=== PATIENT | female | born 1995 | race Caucasian/White ===

== ENCOUNTER 2016-08-05 18:25 | Observation (INO) | payer OTHER ==
[~2016-08-05] VITALS: Ht 154.9 cm; Wt 52.1 kg
[2016-08-05 19:11] LABS: HEMATOCRIT 42.2 % (36.0-46.0); MCH 29.4 PG (29.0-34.0); MCHC 34.8 G/DL (30.0-36.0); MCV 84.4 FL (83-99); MEAN PLAT.VOLUME 9.6 uM^3 (9.5-12.4); PLATELET COUNT 330 K/uL (156-360); RBC DIS.WIDTH-CV 12.9 % (11.8-14.6); RBC DIS.WIDTH-SD 39.1 % (39-53); WHITE BLOOD COUNT 6.7 K/uL (4.1-10.2)
[2016-08-05 19:21] LABS: CHLORIDE 109 mEq/L (99-109); POTASSIUM 4.5 mEq/L (3.7-5.4); SODIUM 142 mEq/L (136-147)
[2016-08-05 19:23] LABS: GLUCOSE 93 mg/dL (70-99)
[2016-08-05 19:24] LABS: ANION GAP 12 MEQ/L (2-14)
[2016-08-05 19:27] LABS: GFR ESTIMATE (CALCULATED) > 59 mL/min/
[2016-08-05 19:28] LABS: UREA NITROGEN (BUN) 11 mg/dL (9-23)
[2016-08-05 19:35] LABS: TROP-I INTERPRETATION NEGATIVE; TROPONIN-I < 0.01 ng/mL (0.0-0.30)
[2016-08-05 20:33] LABS: D-DIMER ELISA < 0.15 mg/L FEU (< 0.57)
[2016-08-05] MEDS ORDERED: BUSPAR5 MG PO (21:48)
[2016-08-05 23:40] VITALS: BP 123/74
[2016-08-06 01:27] LABS: TROP-I INTERPRETATION NEGATIVE; TROPONIN-I < 0.01 ng/mL (0.0-0.30)
[2016-08-06 03:57] VITALS: BP 107/59
[2016-08-06 08:12] VITALS: BP 115/58
[2016-08-06 08:32] LABS: HEMATOCRIT 38.4 % (36.0-46.0); MCH 29.1 PG (29.0-34.0); MCHC 33.9 G/DL (30.0-36.0); MCV 85.9 FL (83-99); MEAN PLAT.VOLUME 9.8 uM^3 (9.5-12.4); PLATELET COUNT 264 K/uL (156-360); RBC DIS.WIDTH-SD 40.6 % (39-53); RED BLOOD COUNT 4.47 M/uL (3.80-5.20); WHITE BLOOD COUNT 5.8 K/uL (4.1-10.2)
[2016-08-06 08:55] LABS: ANION GAP 7 MEQ/L (2-14); CHLORIDE 108 MEQ/L (99-109); GFR ESTIMATE (CALCULATED) > 59 mL/min/; GLUCOSE 84 mg/dL (70-99); POTASSIUM 4.4 MEQ/L (3.7-5.4); SAMPLE HEMOLYSIS CHECK 0; SAMPLE ICTERIC CHECK 0; SAMPLE LIPEMIA CHECK 0; SODIUM 140 MEQ/L (136-147); UREA NITROGEN (BUN) 14 mg/dL (9-23)
[2016-08-06 08:57] LABS: TROP-I INTERPRETATION NEGATIVE; TROPONIN-I < 0.01 ng/mL (0.0-0.30)
[2016-08-07] MEDS ORDERED: ATIVAN0.5 MG PO (23:10)
== END 2016-08-06 13:57 | disposition home or self-care (01) ==
LOC: EME 18:25 → EDOF 22:01 → 5WEST 22:01
PROVIDERS: Emergency Medicine; Hospitalist
DX: R07.89 Other chest pain (principal); R00.2 Palpitations; R94.31 Abnormal electrocardiogram [ECG] [EKG]; R59.1 Generalized enlarged lymph nodes; R05 Cough; F17.200 Nicotine dependence, unspecified, uncomplicated; Z82.49 Family history of ischemic heart disease and other diseases of the circulatory system
CPT/HCPCS: 71020; 71275; 80048; 84443; 84484; 85027; 85379; 93005; 93306; 99281; 99284; G0378; J7030

== ENCOUNTER 2016-08-07 20:46 | Emergency (ER) | payer OTHER ==
[~2016-08-07] VITALS: Ht 154.9 cm; Wt 52.5 kg
[~2016-08-07 20:46] MED LIST: BUSPAR5 MG PO
[2016-08-07 21:37] LABS: HEMATOCRIT 39.7 % (36.0-46.0); MCH 30.4 PG (29.0-34.0); MCHC 36.3 G/DL (30.0-36.0); MCV 83.9 FL (83-99); MEAN PLAT.VOLUME 9.6 uM^3 (9.5-12.4); PLATELET COUNT 330 K/uL (156-360); RBC DIS.WIDTH-CV 12.6 % (11.8-14.6); RBC DIS.WIDTH-SD 38.1 % (39-53); RED BLOOD COUNT 4.73 M/uL (3.80-5.20); WHITE BLOOD COUNT 7.4 K/uL (4.1-10.2)
[2016-08-07 21:50] LABS: CHLORIDE 108 mEq/L (99-109); POTASSIUM 4.2 mEq/L (3.7-5.4); SODIUM 139 mEq/L (136-147)
[2016-08-07 21:51] LABS: GLUCOSE 87 mg/dL (70-99)
[2016-08-07 21:53] LABS: ANION GAP 9 MEQ/L (2-14)
[2016-08-07 21:55] LABS: GFR ESTIMATE (CALCULATED) > 59 mL/min/
[2016-08-07 21:56] LABS: UREA NITROGEN (BUN) 15 mg/dL (9-23)
[2016-08-07 21:57] LABS: TROP-I INTERPRETATION NEGATIVE; TROPONIN-I < 0.01 ng/mL (0.0-0.30)
[2016-08-07 22:19] VITALS: BP 123/81
[2016-08-07 22:52] LABS: QUANTITATIVE HCG < 4.0 MIU/ML
[2016-08-07] MEDS ORDERED: ATIVAN0.5 MG PO (23:10)
== END 2016-08-07 23:53 | disposition home or self-care (01) ==
LOC: EME 20:46
DX: R00.2 Palpitations (principal); R07.89 Other chest pain; F43.9 Reaction to severe stress, unspecified; F41.9 Anxiety disorder, unspecified; F17.200 Nicotine dependence, unspecified, uncomplicated
CPT/HCPCS: 71020; 80048; 84484; 84702; 85027; 93005; 99281; 99284